=== PATIENT | male | born 1985 | race Two or more races ===

== ENCOUNTER 2023-10-29 07:14 | Emergency (ER) | payer MEDICAID ==
[~2023-10-29] VITALS: Ht 170.2 cm; Wt 65.9 kg
[2023-10-29 07:23] VITALS: BP 115/68; PULSE 100; RESP 18; TEMP 98.6
[2023-10-29] MEDS ORDERED: PERM60CR19 TP (08:08)
[2023-10-29] MEDS ORDERED: DIPH50CA37 PO (08:08)
[2023-10-29] MEDS ORDERED: RISP3TAB63 PO (08:08)
== END 2023-10-29 08:12 | disposition home or self-care (01) ==
LOC: EMS 07:14
DX: B86 Scabies (principal); L30.9 Dermatitis, unspecified; F15.10 Other stimulant abuse, uncomplicated; F25.1 Schizoaffective disorder, depressive type; F17.210 Nicotine dependence, cigarettes, uncomplicated; Z98.890 Other specified postprocedural states; Z88.0 Allergy status to penicillin
CPT/HCPCS: 99283

== ENCOUNTER 2025-08-01 19:29 | Emergency (ER) | payer MEDICAID, OTHER ==
[~2025-08-01 19:29] MED LIST: DIVA-112 PO; OLAN10TA74 PO
[2025-08-01 22:05] VITALS: BP 134/77; PULSE 79; RESP 18; TEMP 98.3; O2SAT 100
[2025-08-01] MEDS ORDERED: METOCLOPRAMIDE HCL 10 MG TABLET PO ONE (22:30)
[2025-08-01] MEDS: ACETAMINOPHEN 500 MG TABLET PO ONE (22:34)
[2025-08-01] MEDS: IBUPROFEN 400 MG TABLET PO ONE (22:35)
[2025-08-01] MEDS: DIVALPROEX SODIUM 250 MG DR TABLET PO ONE (22:37)
== END 2025-08-01 23:50 | disposition home or self-care (01) ==
LOC: EMS 19:36
DX: R51.9 Headache, unspecified (principal); F31.30 Bipolar disorder, current episode depressed, mild or moderate severity, unspecified; F10.20 Alcohol dependence, uncomplicated; F20.9 Schizophrenia, unspecified; F17.210 Nicotine dependence, cigarettes, uncomplicated; F15.90 Other stimulant use, unspecified, uncomplicated; Z79.899 Other long term (current) drug therapy; Z88.0 Allergy status to penicillin
CPT/HCPCS: 99284; Z7502; Z7610